=== PATIENT | male | born 1990 | race Hispanic/Latino ===

== ENCOUNTER 2024-02-23 10:11 | Emergency (ER) | payer OTHER ==
[~2024-02-23] VITALS: Ht 177.8 cm; Wt 88.5 kg
[2024-02-23] MEDS: methoCARBamol 500 MG TABLET PO SCH (11:32)
[2024-02-23] MEDS: ketOROlac 30MG VIAL (30MG/ML) IM ONE (11:33)
--- NOTE | 2024-02-23 11:34 | HMCIMG ---
SHOULDER COMP 2+VWS LT INDICATION: Pain TECHNIQUE: SHOULDER COMP 2+VWS LT. FINDINGS/IMPRESSION: No displaced fractures identified. The lateral clavicle is approximately 7 mm higher than the acromion which may may represent ligamentous injury in the proper clinical setting. There is mild soft tissue swelling No radiopaque foreign body is identified.
[2024-02-23 11:41] VITALS: BP 142/60; PULSE 58; RESP 16; TEMP 98.3; O2SAT 98
[2024-02-23] MEDS ORDERED: MELO-106 PO (11:41)
--- NOTE | 2024-02-23 11:44 | ERN ---
General Chief Complaint: Shoulder Injury/Pain Stated Complaint: LEFT SHOULDER INJURY Time Seen by MD: 10:14 Time Seen by Midlevel: 10:14 Source: patient History of Present Illness Initial Comments 33-year-old male who presents to the ED due to left shoulder pain. Patient reports he was never made by yesterday fell from standing position and opponent landed on his shoulder. Reports he previously had a sprain to the shoulder, rotator cuff injury. Patient reports pain with movement but denies further associated symptoms. Denies significant past medical history. Allergies: Coded Allergies: No Known Drug Allergies (Unverified Allergy, Unknown, 02/23/24) Home Meds Active Scripts Meloxicam (Meloxicam) 7.5 Mg Tablet, 7.5 MG PO DAILY for 7 Days, #7 TAB Prov:TONE ALANIZ 02/23/24 Past Medical History Past Medical History: No Pertinent History Past Surgical History: None ROS Dictation Constitutional: Negative for fever,chills, and weight loss Eyes: Negative for injury, pain,redness, and discharge ENT: Negative for injury,pain or swelling Cardiovascular: Negative for chest pain, palpitations, and edema Respiratory: Negative for shortness of breath, cough, and wheezing, Abdomen/GI: Negative for abdominal pain, nausea, vomiting, diarrhea, and constipation Back: Negative for injury and pain : Negative for painful urination, bleeding or discharge MS/Extremity: Positive for left shoulder pain Negative for injury and deformity Skin: Negative for rash, and discoloration Neuro: Negative for headache, weakness, numbness, tingling, and seizure Psych: Negative for suicide ideation, homicidal ideation, and hallucinations Physical Exam Physical Exam Dictation General: awake, alert, no acute distress Head/Face: Normocephalic, atraumatic Eyes: PERRL, EOMI, normal conjunctiva Neck: Normal range of motion Cardiovascular: Normal peripheral perfusion Skin: Warm, dry, normal turgor, no rash MS/Extremity: Pulses equal, no cyanosis, neurovascular intact, limited active ROM restricted by pain, full passive range of motion, mild tenderness on palpation posterior aspect of the left shoulder Neuro: COAx4, GCS 15, normal gait Psych: Normal behavior, mood, and affect normal MDM MDM: Differential diagnosis: Fracture, dislocation, sprain, strain Rationale: 33-year-old male who presents to the ED due to left shoulder pain. Patient reports he was never made by yesterday fell from standing position and opponent landed on his shoulder. Reports he previously had a sprain to the shoulder, rotator cuff injury. Patient reports pain with movement but denies further associated symptoms. Denies significant past medical history. X-rays obtained of the left shoulder with no indications of fractures or dislocations. Per physical examination patient has limited active range of motion restricted by pain, full passive range of motion, neurovascularly intact. Patient was administered methocarbamol and ketorolac in the ED. On re- examination patient verbalized some pain improvement. He was educated on findings and diagnosis. Advised to follow up with PCP. Return to the ED if any worsening symptoms. Patient verbalized understanding. Patient stable for discharge. Patient placed on a sling and referred to follow up with ortho. There are no social concerns with this patient. I independently interpreted the test that were performed, results were reviewed by me and considered findings on radiology if ordered. Medical management and examination interpretation discussions were had by me with other qualified healthcare professionals as indicated for the patient's care. ED Course Orders Procedure Category Date Status Time Shoulder Comp 2+Vws Lt RAD 02/23/24 Resulted 10:19 Ketorolac PHA 02/23/24 Complete Tromethamine 30mg/Ml 11:00 Methocarbamol PHA 02/23/24 Complete (Methocarbamol) 11:00 Sling SACHI 02/23/24 Complete 11:49 Current Medications Medications (Trade) Dose Ordered Sig/Surekha Route PRN Reason Start Time Stop Time Status Last Admin Dose Admin Ketorolac Tromethamine (toRADol) 30 mg ONCE ONCE IM 02/23/24 11:00 02/23/24 11:01 DC 02/23/24 11:33 Methocarbamol (methoCARBamol) 1,000 mg ONCE PO 02/23/24 11:00 02/23/24 12:03 DC 02/23/24 11:32 Vital Signs Date Time Temp Pulse Resp B/P (MAP) Pulse Ox O2 Delivery O2 Flow Rate FiO2 02/23/24 11:41 98.2 58 16 142/60 98 Room Air* 0 21 02/23/24 10:12 98.1 57 14 140/62 98 Room Air 0 DX & DISP Disposition: Discharge Departure Impression: Primary Impression: Shoulder sprain Additional Impression: Left shoulder pain Condition: Stable Scripts Meloxicam (Meloxicam) 7.5 Mg Tablet 7.5 MG PO DAILY for 7 Days, #7 TAB Prov: TONE ALANIZ 02/23/24 Additional Instructions: Discharge home. Rest. Follow up with primary care DrIsh in 24 hours. Return to the ER for any acute changes or worsening symptoms. If any medications were prescribed take as directed. Okay to continue home medications unless otherwise discussed during your visit in the emergency room today. Patient was also advised to follow-up with primary care physician in 1 to 2 days for continued monitoring. Referrals: CAROL MCCOY MD,ARCENIO MARTINI,MIGUEL MARTINI,NADER I performed this substantive portion of this visit. I have reviewed and personally made and approve the management plan that is documented in the note by myself or the [facility]ANS. I acknowledge full responsibility for the patient's management plan. TONE ALANIZ Feb 23, 2024 11:44 TONO SEGAL MD Feb 24, 2024 18:03
== END 2024-02-23 12:03 | disposition home or self-care (01) ==
LOC: EDH 10:11
DX: S43.492A Other sprain of left shoulder joint, initial encounter (principal); M25.512 Pain in left shoulder; Z79.1 Long term (current) use of non-steroidal anti-inflammatories (NSAID); X58.XXXA Exposure to other specified factors, initial encounter; Y93.89 Activity, other specified; Y92.89 Other specified places as the place of occurrence of the external cause; Y99.8 Other external cause status
CPT/HCPCS: 99283; 73030; 96372; J1885

== ENCOUNTER → 2024-03-09 | Outpatient (CLI) | payer OTHER ==
[~2024-03-09] MED LIST: MELO-106 PO
--- NOTE | 2024-03-09 15:33 | HMCIMG ---
MR SHOULDER LEFT WO REASON: PAIN COMPARISON: None TECHNIQUE: Routine imaging protocol was performed in the axial, oblique sagittal and oblique coronal plane with T1, proton density, T2 and gradient recalled sequences. FINDINGS: There is extensive osseous marrow edema in the distal clavicle. There is edema in the soft tissues of the acromioclavicular joint as well. The acromion has normal osseous marrow. These findings could represent a nondisplaced distal clavicle fracture. A focal osseous contusion with acromioclavicular joint injury could cause this appearance as well. There is no offset to suggest a grade 2 or 3 acromioclavicular joint injury. Cortical clavicular ligament appears intact. Glenoid joint spaces preserved. The rotator cuff tendon is unremarkable. There are no other focal osseous lesions. Biceps tendon appears unremarkable. IMPRESSION: 1. Injury to the acromioclavicular joint, this probably represents a nonvisualized fracture in the distal clavicle, a grade 1 AC joint separation could cause these findings as well. 2. Otherwise unremarkable exam.
== END | disposition home or self-care (01) ==
LOC: RAH 13:55
PROVIDERS: ATTEND Family Medicine
DX: S42.035A Nondisplaced fracture of lateral end of left clavicle, initial encounter for closed fracture (principal); M25.412 Effusion, left shoulder; M25.512 Pain in left shoulder; S43.52XA Sprain of left acromioclavicular joint, initial encounter; S40.012A Contusion of left shoulder, initial encounter; X58.XXXA Exposure to other specified factors, initial encounter; Y93.89 Activity, other specified; Y92.89 Other specified places as the place of occurrence of the external cause; Y99.8 Other external cause status
CPT/HCPCS: 73221

== ENCOUNTER → 2024-12-24 | Outpatient (CLI) | payer OTHER ==
--- NOTE | 2024-12-30 16:16 | HMCIMG ---
EXAM: MR RIGHT HAND WITHOUT CONTRAST CLINICAL HISTORY: M79.641 Pain in right hand TECHNIQUE: Multiplanar multisequence magnetic resonance images of the right hand without intravenous contrast were obtained. Series acquired include AX T2, AX FSE STIR, AX PD FS, SAG T1 FSE, SAG T2, SAG FSE STIR, COR PD FS, COR T1 FSE, and COR FSE STIR sequences. CONTRAST: None COMPARISON: None FINDINGS: JOINTS: Unremarkable. No dislocation. No joint effusion is identified. BONE: There is no acute fracture or aggressive appearing osseous lesion. SOFT TISSUES: Ligaments: The medial collateral ligament is unremarkable. The lateral collateral ligament is unremarkable. The radial collateral ligament is unremarkable. The ulnar collateral ligament is unremarkable. Tendons: The flexor tendons appear unremarkable. The extensor tendons appear unremarkable. Muscles: The muscles are unremarkable. Cartilage: Cartilage appears unremarkable. IMPRESSION: 1. No acute findings. /[place]
== END | disposition home or self-care (01) ==
LOC: RAH 08:49
PROVIDERS: ATTEND Student in an Organized Health Care Education/Training Program
DX: M79.641 Pain in right hand (principal); M79.644 Pain in right finger(s)
CPT/HCPCS: 73218